=== PATIENT | female | born 1955 | race African-American/Black ===

== ENCOUNTER 2017-10-19 12:27 | Inpatient (IN) ==
[2017-10-19 12:56] LABS: ABG Base Excess 0.8 MMOL/L (-2.5-2.5); ABG Oxygen Saturation 90.3 % (95-100); ABG PCO2 48.3 MM HG (35-48); ABG PH 7.355 (7.35-7.45); ABG PO2 63.4 MM HG (80-95)
[2017-10-19] MEDS ORDERED: ALBUTEROL/IPRATROPIUM 3 ML NEB RESP TX PRN (13:02)
[2017-10-19] MEDS ORDERED: ONDANSETRON 4 MG/2 ML VIAL IV PRN (13:02)
[2017-10-19] MEDS ORDERED: ALBUTEROL 2.5 MG/3 ML NEB RESP TX PRN (13:02)
[2017-10-19] MEDS ORDERED: DEXTROSE 50% 25 GM/50 ML VIAL IV PRN (13:06)
[2017-10-19] MEDS ORDERED: GLUCAGON 1 MG VIAL IM PRN (13:06)
[2017-10-19] MEDS ORDERED: ALBUTEROL 2.5 MG/3 ML NEB RESP TX STA (13:14)
[2017-10-19] MEDS: PROPOFOL 1,000 MG/100 ML BOTTLE IV SCH ×2 (13:45→20:53)
[2017-10-19] MEDS ORDERED: PROPOFOL 1,000 MG/100 ML BOTTLE IV ONE (14:09)
[2017-10-19] MEDS ORDERED: SODIUM CHLORIDE 0.9% 1,000 ML IV ONE (14:12)
[2017-10-19] MEDS ORDERED: SODIUM CHLORIDE 0.9% 2,400 ML IV ONE (14:12)
[2017-10-19] MEDS ORDERED: SODIUM CHLORIDE 0.9% 1,000 ML IV SCH (14:30)
[2017-10-19 14:55] LABS: Basophils % 0.2 % (0.0-0.8); Hematocrit 36.4 VOL% (35.7-47.0); Immature Granulocytes % 0.8 %; Immature Granulocytes Absolute 0.05 #; Lymphocytes # 0.3 10*3/uL (1.4-4.0); Lymphocytes % 4.8 % (21.3-54.2); Mean Corpuscular Hemoglobin 28 PG (27-34); Mean Corpuscular Volume 84.8 FL (87-102); Mean Platelet Volume 9.5 FL (9.6-12.0); Monocytes # 0.3 10*3/uL (0.11-0.8); Monocytes % 4.6 % (1.7-12.7); Neutrophils # 5.6 10*3/uL (1.4-7.4); Neutrophils % 89.6 % (38.7-73.9); Platelet Count 113 T/CUMM (130-400); Red Blood Count 4.29 MC/CUMM (3.8-5.5); Red Cell Distribution Width 14.5 % (9.3-17.3); White Blood Count 6.3 T/CUMM (4-12)
[2017-10-19] MEDS ORDERED: FUROSEMIDE 40 MG/4 ML VIAL IV ONE (15:12)
[2017-10-19 15:16] LABS: Albumin 3.2 G/DL (3.4-5.0); Bilirubin,Total 1.1 MG/DL (0.2-1.0); Calcium 7.9 MG/DL (8.5-10.1); Osmolality,Calculated 274.8 MOS/KG (273-304); Potassium 2.9 MMOL/L (3.5-5.1); Total Protein 6.4 G/DL (6.4-8.3)
[2017-10-19 15:38] LABS: Lymphocytes 8 % (20-55); Polychromasia Few; Segmented Neutrophils 92 % (50-85); Total Cells Counted 100
[2017-10-19 15:39] LABS: Platelet Estimate Decreased
[2017-10-19] MEDS: methylPREDNISolone SOD SUC 40 MG/1 ML VIAL IV SCH ×2 (15:55→20:04)
[2017-10-19] MEDS: PANTOPRAZOLE 40 MG VIAL IV SCH (15:56)
[2017-10-19] MEDS ORDERED: LEVOFLOXACIN INJ 750 MG in PREMIX 1 EACH IV SCH (16:00)
[2017-10-19] MEDS: OSELTAMIVIR 6 MG/ML 60 ML/BOTTLE PO SCH ×2 (16:01→20:53)
[2017-10-19 16:46] LABS: Apearance,Urine CLEAR (Clear); Bilirubin,Urine Negative (Negative); Blood, Urine Moderate mg/dL (Negative); Glucose,Urine (UA) Negative (Negative); Ketones,Urine Negative (Negative); Mucus,Urine Few /LPF (Occasional); Nitrite,Urine Negative (Negative); Protein,Urine Negative; RBC,Urine 17 /HPF (0-4); Urine Color Yellow (Yellow); Urine Specific Gravity 1.014 (1.001-1.035); Urine Urobilinogen < 2.0 EU/DL (0.2-1.0); WBC,Urine 5 /HPF (0-6)
[2017-10-19] MEDS: INSULIN LISPRO 100 UNIT/ML SUBCUT SCH ×2 (16:58→20:16)
[2017-10-19] MEDS ORDERED: INFLUENZA VIRUS VACCINE 0.5 ML SYRINGE IM ONE (17:15)
[2017-10-19] MEDS ORDERED: PNEUMOCOCCAL VACCINE (23 VALENT) 0.5 ML VIAL IM ONE (17:17)
[2017-10-19] MEDS: PIPERACILLIN/TAZOBACTAM 3,375 MG in SODIUM CHLORIDE 0.9% 100 ML IV SCH (17:56)
[2017-10-19] MEDS ORDERED: POTASSIUM CHLORIDE INJ 50 MEQ in SODIUM CHLORIDE 0.9% 500 ML IV ONE (18:00)
[2017-10-19] MEDS ORDERED: POTASSIUM CHLORIDE RIDER 10 MEQ in PREMIX 1 EACH IV SCH (18:30)
[2017-10-19] MEDS ORDERED: ASPIRIN 325 MG TABLET PO SCH (18:35)
[2017-10-19] MEDS: ALBUTEROL/IPRATROPIUM 3 ML NEB RESP TX SCH (18:40)
[2017-10-19] MEDS ORDERED: MAGNESIUM SULF RIDER 4 GM in PREMIX 1 EACH IV PRN (18:57)
[2017-10-19] MEDS ORDERED: MAGNESIUM SULF RIDER 2 GM in PREMIX 1 EACH IV PRN (18:57)
[2017-10-19] MEDS: FUROSEMIDE 40 MG/4 ML VIAL IV SCH (19:16)
[2017-10-19] MEDS: POTASSIUM CHLORIDE 20 MEQ/15 ML UDCUP PER TUBE SCH ×3 (19:17→20:53)
[2017-10-19 19:58] LABS: CKMB % 2.2 %
[2017-10-19 20:03] LABS: Troponin I Only 2.27 NG/ML (0.00-0.045)
[2017-10-19] MEDS: ENOXAPARIN 40 MG/0.4 ML SYRINGE SUBCUT SCH (20:53)
[2017-10-19] MEDS ORDERED: DIGOXIN 0.5 MG/2 ML AMP IV ONE (22:30)
[2017-10-20] MEDS: ALBUTEROL/IPRATROPIUM 3 ML NEB RESP TX SCH ×4 (00:45→19:51)
[2017-10-20] MEDS: PIPERACILLIN/TAZOBACTAM 3,375 MG in SODIUM CHLORIDE 0.9% 100 ML IV SCH ×3 (01:27→16:48)
[2017-10-20] MEDS: methylPREDNISolone SOD SUC 40 MG/1 ML VIAL IV SCH ×4 (02:24→20:11)
[2017-10-20 04:48] LABS: ABG Base Excess 0.1 MMOL/L (-2.5-2.5); ABG HCO3 24.6 MMOL/L (20-26); ABG PCO2 35.9 MM HG (35-48); ABG PH 7.433 (7.35-7.45); ABG TCO2 21.4 MMOL/L (23-27)
[2017-10-20 04:52] LABS: Hematocrit 36.7 VOL% (35.7-47.0); Immature Granulocytes % 1.2 %; Immature Granulocytes Absolute 0.04 #; Lymphocytes # 0.4 10*3/uL (1.4-4.0); Lymphocytes % 10.5 % (21.3-54.2); Mean Corpuscular HGB Conc 32.7 GM/DL (32-36); Mean Corpuscular Hemoglobin 27 PG (27-34); Mean Corpuscular Volume 82.7 FL (87-102); Mean Platelet Volume 9.4 FL (9.6-12.0); Monocytes # 0.1 10*3/uL (0.11-0.8); Monocytes % 2.7 % (1.7-12.7); Neutrophils # 2.9 10*3/uL (1.4-7.4); Neutrophils % 85.6 % (38.7-73.9); Platelet Count 117 T/CUMM (130-400); Red Blood Count 4.44 MC/CUMM (3.8-5.5); Red Cell Distribution Width 14.6 % (9.3-17.3); White Blood Count 3.3 T/CUMM (4-12)
[2017-10-20] MEDS: PROPOFOL 1,000 MG/100 ML BOTTLE IV SCH ×4 (05:01→21:39)
[2017-10-20 06:39] LABS: Calcium 8.4 MG/DL (8.5-10.1); Osmolality,Calculated 282.7 MOS/KG (273-304); Potassium 3.8 MMOL/L (3.5-5.1); Total Protein 6.2 G/DL (6.4-8.3)
[2017-10-20] MEDS ORDERED: FUROSEMIDE 40 MG/4 ML VIAL IV SCH (08:00)
[2017-10-20] MEDS: INSULIN LISPRO 100 UNIT/ML SUBCUT SCH ×4 (08:12→21:38)
[2017-10-20] MEDS: OSELTAMIVIR 6 MG/ML 60 ML/BOTTLE PO SCH ×2 (08:17→20:11)
[2017-10-20] MEDS: FUROSEMIDE 40 MG/4 ML VIAL IV SCH ×2 (08:17→16:49)
[2017-10-20] MEDS: ASPIRIN EC 81 MG TABLET PO SCH (08:18)
[2017-10-20] MEDS ORDERED: DIGOXIN 0.5 MG/2 ML AMP ONE (12:58)
[2017-10-20] MEDS ORDERED: DIGOXIN 0.5 MG/2 ML AMP IV ONE ×2 (13:00→19:57)
[2017-10-20] MEDS ORDERED: POTASSIUM CHLORIDE RIDER 100 ML IV ONE (13:16)
[2017-10-20] MEDS: POTASSIUM CHLORIDE RIDER 10 MEQ in PREMIX 1 EACH IV PRN ×2 (13:31→14:31)
[2017-10-20] MEDS: PANTOPRAZOLE 40 MG VIAL IV SCH (14:14)
[2017-10-20] MEDS: ENOXAPARIN 40 MG/0.4 ML SYRINGE SUBCUT SCH (20:11)
[2017-10-21] MEDS: PIPERACILLIN/TAZOBACTAM 3,375 MG in SODIUM CHLORIDE 0.9% 100 ML IV SCH ×3 (01:28→17:14)
[2017-10-21] MEDS: PROPOFOL 1,000 MG/100 ML BOTTLE IV SCH ×5 (01:45→20:16)
[2017-10-21] MEDS: ALBUTEROL/IPRATROPIUM 3 ML NEB RESP TX SCH ×4 (02:04→20:46)
[2017-10-21 04:02] LABS: ABG Base Excess 3.8 MMOL/L (-2.5-2.5); ABG HCO3 26.2 MMOL/L (20-26); ABG Oxygen Saturation 99.3 % (95-100); ABG PCO2 32.6 MM HG (35-48); ABG PH 7.523 (7.35-7.45); ABG PO2 198.5 MM HG (80-95); ABG TCO2 27.2 MMOL/L (23-27); Allen Test Positive; Pt O2 Delivery Device Ventilator
[2017-10-21] MEDS: methylPREDNISolone SOD SUC 40 MG/1 ML VIAL IV SCH ×3 (06:10→17:14)
[2017-10-21] MEDS: INSULIN LISPRO 100 UNIT/ML SUBCUT SCH ×4 (07:34→22:17)
[2017-10-21] MEDS: FUROSEMIDE 40 MG/4 ML VIAL IV SCH ×2 (08:42→17:14)
[2017-10-21] MEDS: ASPIRIN EC 81 MG TABLET PO SCH (08:43)
[2017-10-21] MEDS: OSELTAMIVIR 6 MG/ML 60 ML/BOTTLE PO SCH ×2 (08:44→21:48)
[2017-10-21] MEDS: PANTOPRAZOLE 40 MG VIAL IV SCH (14:26)
[2017-10-21] MEDS: CARVEDILOL 6.25 MG TABLET PO SCH ×2 (17:14→21:48)
[2017-10-21] MEDS: APIXABAN 5 MG TABLET PO SCH (21:48)
[2017-10-22] MEDS: PIPERACILLIN/TAZOBACTAM 3,375 MG in SODIUM CHLORIDE 0.9% 100 ML IV SCH ×3 (01:05→17:21)
[2017-10-22] MEDS: methylPREDNISolone SOD SUC 40 MG/1 ML VIAL IV SCH ×4 (01:05→17:22)
[2017-10-22] MEDS: ALBUTEROL/IPRATROPIUM 3 ML NEB RESP TX SCH ×4 (01:37→21:11)
[2017-10-22 05:40] LABS: ABG Base Excess 6.5 MMOL/L (-2.5-2.5); ABG HCO3 30.4 MMOL/L (20-26); ABG Oxygen Saturation 99.3 % (95-100); ABG PCO2 40.6 MM HG (35-48); ABG PH 7.484 (7.35-7.45); ABG TCO2 26.2 MMOL/L (23-27)
[2017-10-22] MEDS: PROPOFOL 1,000 MG/100 ML BOTTLE IV SCH ×2 (07:00→16:08)
[2017-10-22] MEDS: INSULIN LISPRO 100 UNIT/ML SUBCUT SCH ×4 (07:50→22:34)
[2017-10-22] MEDS: FUROSEMIDE 40 MG/4 ML VIAL IV SCH (08:24)
[2017-10-22] MEDS: OSELTAMIVIR 6 MG/ML 60 ML/BOTTLE PO SCH (08:25)
[2017-10-22] MEDS: CARVEDILOL 6.25 MG TABLET PO SCH ×2 (08:25→20:30)
[2017-10-22] MEDS: APIXABAN 5 MG TABLET PO SCH (08:25)
[2017-10-22] MEDS: ASPIRIN EC 81 MG TABLET PO SCH (08:25)
[2017-10-22] MEDS ORDERED: POTASSIUM CHLORIDE RIDER 10 MEQ in PREMIX 1 EACH IV PRN (10:22)
[2017-10-22] MEDS ORDERED: MAGNESIUM SULF RIDER 2 GM in PREMIX 1 EACH IV PRN (10:22)
[2017-10-22] MEDS: SODIUM CHLORIDE 0.45% 1,000 ML IV SCH (10:30)
[2017-10-22] MEDS: PANTOPRAZOLE 40 MG VIAL IV SCH (13:28)
[2017-10-22 15:08] LABS: Basophils % 0.1 % (0.0-0.8); Hematocrit 43.1 VOL% (35.7-47.0); Hemoglobin 13.9 GM/DL (12.0-16.0); Immature Granulocytes % 0.5 %; Immature Granulocytes Absolute 0.04 #; Lymphocytes # 0.4 10*3/uL (1.4-4.0); Lymphocytes % 5.4 % (21.3-54.2); Mean Corpuscular HGB Conc 32.3 GM/DL (32-36); Mean Corpuscular Hemoglobin 27 PG (27-34); Mean Platelet Volume 9.4 FL (9.6-12.0); Monocytes # 0.4 10*3/uL (0.11-0.8); Monocytes % 4.5 % (1.7-12.7); Neutrophils # 6.9 10*3/uL (1.4-7.4); Neutrophils % 89.5 % (38.7-73.9); Platelet Count 143 T/CUMM (130-400); Red Blood Count 5.07 MC/CUMM (3.8-5.5); Red Cell Distribution Width 14.6 % (9.3-17.3); White Blood Count 7.7 T/CUMM (4-12)
[2017-10-22 15:14] LABS: INR 1.1; PT Patient Result 11.2 SECS
[2017-10-22 15:40] LABS: Albumin 3.1 G/DL (3.4-5.0); Bilirubin,Total 0.8 MG/DL (0.2-1.0); Calcium 8.7 MG/DL (8.5-10.1); Osmolality,Calculated 303.6 MOS/KG (273-304); Potassium 3.2 MMOL/L (3.5-5.1); Total Protein 7.2 G/DL (6.4-8.3)
[2017-10-22] MEDS ORDERED: DEXTROSE 50% 25 GM/50 ML VIAL IV PRN (19:47)
[2017-10-22] MEDS ORDERED: GLUCAGON 1 MG VIAL IM PRN (19:47)
[2017-10-22] MEDS ORDERED: ENOXAPARIN 80 MG/0.8 ML SYRINGE SUBCUT SCH (21:00)
[2017-10-22] MEDS: POTASSIUM CHLORIDE 20 MEQ TABLET PO PRN ×2 (21:51→23:45)
[2017-10-22] MEDS ORDERED: hydrALAZINE 20 MG/1 ML VIAL IV ONE (23:30)
[2017-10-23] MEDS: ALBUTEROL/IPRATROPIUM 3 ML NEB RESP TX SCH ×4 (00:39→20:15)
[2017-10-23] MEDS: methylPREDNISolone SOD SUC 40 MG/1 ML VIAL IV SCH ×5 (02:01→23:43)
[2017-10-23] MEDS: PIPERACILLIN/TAZOBACTAM 3,375 MG in SODIUM CHLORIDE 0.9% 100 ML IV SCH ×3 (02:02→17:09)
[2017-10-23] MEDS: POTASSIUM CHLORIDE 20 MEQ TABLET PO PRN ×2 (02:03→04:16)
[2017-10-23 05:36] LABS: Hematocrit 40.6 VOL% (35.7-47.0); Hemoglobin 13.1 GM/DL (12.0-16.0); Immature Granulocytes % 0.8 %; Immature Granulocytes Absolute 0.06 #; Lymphocytes # 0.5 10*3/uL (1.4-4.0); Lymphocytes % 6.7 % (21.3-54.2); Mean Corpuscular HGB Conc 32.3 GM/DL (32-36); Mean Corpuscular Hemoglobin 27 PG (27-34); Mean Corpuscular Volume 84.8 FL (87-102); Mean Platelet Volume 10.1 FL (9.6-12.0); Monocytes # 0.3 10*3/uL (0.11-0.8); Monocytes % 4.3 % (1.7-12.7); Neutrophils # 6.4 10*3/uL (1.4-7.4); Neutrophils % 88.2 % (38.7-73.9); Platelet Count 144 T/CUMM (130-400); Red Blood Count 4.79 MC/CUMM (3.8-5.5); Red Cell Distribution Width 14.2 % (9.3-17.3); White Blood Count 7.2 T/CUMM (4-12)
[2017-10-23 05:55] LABS: Calcium 8.4 MG/DL (8.5-10.1); Osmolality,Calculated 289.4 MOS/KG (273-304); Potassium 3.7 MMOL/L (3.5-5.1)
[2017-10-23] MEDS ORDERED: LIDOCAINE 1% 20 ML VIAL ONE ×2 (06:51→07:32)
[2017-10-23] MEDS ORDERED: HEPARIN/NACL 0.9% 2 UNITS/ML 0 ML IV ONE (06:51)
[2017-10-23] MEDS ORDERED: diphenhydrAMINE 50 MG/1 ML VIAL IV ONE (06:59)
[2017-10-23] MEDS ORDERED: DIAZEPAM 5 MG TABLET PO ONE (07:00)
[2017-10-23] MEDS ORDERED: MIDAZOLAM 2 MG/2 ML VIAL ONE (07:36)
[2017-10-23] MEDS ORDERED: HYDROmorphone 2 MG/1 ML VIAL ONE (07:36)
[2017-10-23] MEDS: INSULIN LISPRO 100 UNIT/ML SUBCUT SCH ×4 (07:38→20:25)
[2017-10-23] MEDS ORDERED: ENOXAPARIN 60 MG/0.6 ML SYRINGE ONE (08:04)
[2017-10-23] MEDS ORDERED: NITROGLYCERIN SL 0.4 MG TABLET SL PRN (09:13)
[2017-10-23] MEDS ORDERED: CLOPIDOGREL 300 MG TABLET ONE (09:15)
[2017-10-23] MEDS: SODIUM CHLORIDE 0.45% 1,000 ML IV SCH (09:30)
[2017-10-23] MEDS: ASPIRIN EC 81 MG TABLET PO SCH (11:27)
[2017-10-23] MEDS: ATORVASTATIN 80 MG TABLET PO SCH (11:27)
[2017-10-23] MEDS: CARVEDILOL 6.25 MG TABLET PO SCH ×2 (11:27→20:07)
[2017-10-23] MEDS: OSELTAMIVIR 6 MG/ML 60 ML/BOTTLE PO SCH ×2 (11:28→20:07)
[2017-10-23] MEDS: PANTOPRAZOLE 40 MG VIAL IV SCH (14:02)
[2017-10-23] MEDS: hydrALAZINE 20 MG/1 ML VIAL IV PRN (15:19)
[2017-10-24] MEDS: ALBUTEROL/IPRATROPIUM 3 ML NEB RESP TX SCH ×4 (00:39→19:13)
[2017-10-24] MEDS: PIPERACILLIN/TAZOBACTAM 3,375 MG in SODIUM CHLORIDE 0.9% 100 ML IV SCH ×3 (00:45→17:07)
[2017-10-24] MEDS: hydrALAZINE 20 MG/1 ML VIAL IV PRN (03:48)
[2017-10-24] MEDS: methylPREDNISolone SOD SUC 40 MG/1 ML VIAL IV SCH ×3 (05:18→20:59)
[2017-10-24 06:47] LABS: Hematocrit 40.6 VOL% (35.7-47.0); Hemoglobin 13.6 GM/DL (12.0-16.0); Immature Granulocytes % 0.7 %; Immature Granulocytes Absolute 0.04 #; Lymphocytes # 0.5 10*3/uL (1.4-4.0); Mean Corpuscular HGB Conc 33.5 GM/DL (32-36); Mean Corpuscular Hemoglobin 27 PG (27-34); Mean Corpuscular Volume 81.7 FL (87-102); Mean Platelet Volume 9.7 FL (9.6-12.0); Monocytes # 0.2 10*3/uL (0.11-0.8); Monocytes % 3.4 % (1.7-12.7); Neutrophils % 86.9 % (38.7-73.9); Platelet Count 150 T/CUMM (130-400); Red Blood Count 4.97 MC/CUMM (3.8-5.5); Red Cell Distribution Width 13.9 % (9.3-17.3); White Blood Count 5.8 T/CUMM (4-12)
[2017-10-24 07:11] LABS: Calcium 8.4 MG/DL (8.5-10.1); Magnesium 2.7 MG/DL (1.8-2.4); Osmolality,Calculated 289.4 MOS/KG (273-304); Potassium 3.8 MMOL/L (3.5-5.1)
[2017-10-24] MEDS: INSULIN LISPRO 100 UNIT/ML SUBCUT SCH ×4 (07:29→20:55)
[2017-10-24] MEDS: ATORVASTATIN 80 MG TABLET PO SCH (08:26)
[2017-10-24] MEDS: CLOPIDOGREL 75 MG TABLET PO SCH (08:26)
[2017-10-24] MEDS: ASPIRIN EC 81 MG TABLET PO SCH (08:26)
[2017-10-24] MEDS: CARVEDILOL 6.25 MG TABLET PO SCH ×2 (08:27→20:54)
[2017-10-24] MEDS: SODIUM CHLORIDE 0.45% 1,000 ML IV SCH (08:44)
[2017-10-24] MEDS: APIXABAN 5 MG TABLET PO SCH ×2 (12:07→20:54)
[2017-10-24] MEDS: OSELTAMIVIR 6 MG/ML 60 ML/BOTTLE PO SCH ×2 (15:40→20:53)
[2017-10-24] MEDS: PANTOPRAZOLE 40 MG VIAL IV SCH (17:02)
[2017-10-25] MEDS: methylPREDNISolone SOD SUC 40 MG/1 ML VIAL IV SCH ×2 (00:17→05:34)
[2017-10-25] MEDS: ALBUTEROL/IPRATROPIUM 3 ML NEB RESP TX SCH ×4 (01:25→19:26)
[2017-10-25] MEDS: PIPERACILLIN/TAZOBACTAM 3,375 MG in SODIUM CHLORIDE 0.9% 100 ML IV SCH ×2 (01:30→09:21)
[2017-10-25 04:00] LABS: Basophils % 0.1 % (0.0-0.8); Hematocrit 38.5 VOL% (35.7-47.0); Hemoglobin 13.1 GM/DL (12.0-16.0); Immature Granulocytes % 0.7 %; Immature Granulocytes Absolute 0.05 #; Lymphocytes # 0.6 10*3/uL (1.4-4.0); Lymphocytes % 7.9 % (21.3-54.2); Mean Corpuscular Hemoglobin 28 PG (27-34); Mean Corpuscular Volume 81.4 FL (87-102); Mean Platelet Volume 9.9 FL (9.6-12.0); Monocytes # 0.4 10*3/uL (0.11-0.8); Monocytes % 4.8 % (1.7-12.7); Neutrophils # 6.4 10*3/uL (1.4-7.4); Neutrophils % 86.5 % (38.7-73.9); Platelet Count 147 T/CUMM (130-400); Red Blood Count 4.73 MC/CUMM (3.8-5.5); Red Cell Distribution Width 13.6 % (9.3-17.3); White Blood Count 7.4 T/CUMM (4-12)
[2017-10-25 04:36] LABS: Calcium 8.3 MG/DL (8.5-10.1); Magnesium 2.6 MG/DL (1.8-2.4); Osmolality,Calculated 288.4 MOS/KG (273-304); Potassium 3.9 MMOL/L (3.5-5.1)
[2017-10-25] MEDS: APIXABAN 5 MG TABLET PO SCH ×2 (09:20→20:53)
[2017-10-25] MEDS: CLOPIDOGREL 75 MG TABLET PO SCH (09:20)
[2017-10-25] MEDS: ATORVASTATIN 80 MG TABLET PO SCH (09:20)
[2017-10-25] MEDS: CARVEDILOL 6.25 MG TABLET PO SCH ×2 (09:20→20:52)
[2017-10-25] MEDS: INSULIN LISPRO 100 UNIT/ML SUBCUT SCH ×4 (09:22→20:53)
[2017-10-25] MEDS: OSELTAMIVIR 6 MG/ML 60 ML/BOTTLE PO SCH ×2 (10:34→20:49)
[2017-10-25] MEDS: PANTOPRAZOLE 40 MG VIAL IV SCH (13:39)
[2017-10-25] MEDS: FUROSEMIDE 40 MG TABLET PO SCH (16:29)
[2017-10-25] MEDS: AMOXICILLIN/CLAV 500 MG TABLET PO SCH (20:52)
[2017-10-26] MEDS: ALBUTEROL/IPRATROPIUM 3 ML NEB RESP TX SCH ×3 (00:28→14:08)
[2017-10-26] MEDS: ATORVASTATIN 80 MG TABLET PO SCH (09:45)
[2017-10-26] MEDS: AMOXICILLIN/CLAV 500 MG TABLET PO SCH (09:45)
[2017-10-26] MEDS: FUROSEMIDE 40 MG TABLET PO SCH (09:45)
[2017-10-26] MEDS: CLOPIDOGREL 75 MG TABLET PO SCH (09:45)
[2017-10-26] MEDS: CARVEDILOL 6.25 MG TABLET PO SCH (09:46)
[2017-10-26] MEDS: INSULIN LISPRO 100 UNIT/ML SUBCUT SCH ×2 (09:46→12:28)
[2017-10-26] MEDS: APIXABAN 5 MG TABLET PO SCH (09:46)
[2017-10-26] MEDS: OSELTAMIVIR 6 MG/ML 60 ML/BOTTLE PO SCH (10:41)
[2017-10-26] MEDS ORDERED: CARVEDILOL 12.5 MG TABLET PO SCH (10:55)
[2017-10-26] MEDS ORDERED: ASPIRIN CHEW 81 MG TABLET PO SCH (11:00)
[2017-10-26 12:12] VITALS: BP 148/88
[2017-10-26] MEDS: PANTOPRAZOLE 40 MG VIAL IV SCH (12:43)
[2017-10-26] MEDS: POTASSIUM CHLORIDE 20 MEQ TABLET PO PRN (13:31)
[2017-10-26] MEDS ORDERED: POTASSIUM CHLORIDE 20 MEQ TABLET PO ONE (14:22)
[2017-10-27] MEDS ORDERED: LOSARTAN 50 MG TABLET PO SCH (09:00)
== END 2017-10-26 14:30 | disposition home or self-care (01) | DRG 981 ==
LOC: EDUNIT# → N.ED 12:27 → N.EDINP 13:01 → SUATTDRO 13:01 → N.CC 13:34 → N.TELES 10-24 09:33
PROVIDERS: ADMIT Internal Medicine; ATTEND Internal Medicine

== ENCOUNTER 2017-11-24 17:24 | Inpatient (IN) ==
[2017-11-24] MEDS ORDERED: PANTOPRAZOLE 40 MG VIAL IV STA (18:07)
[2017-11-24] MEDS ORDERED: SODIUM CHLORIDE 0.9% 1,000 ML IV STA (18:07)
[2017-11-24] MEDS ORDERED: ONDANSETRON 4 MG/2 ML VIAL IV STA (18:07)
[2017-11-24 18:51] LABS: Basophils % 0.1 % (0.0-0.8); Eosinophils % 0.1 % (0.00-10.9); Hematocrit 20.1 VOL% (35.7-47.0); Immature Granulocytes % 0.4 %; Immature Granulocytes Absolute 0.03 #; Lymphocytes # 1.2 10*3/uL (1.4-4.0); Lymphocytes % 18.5 % (21.3-54.2); Mean Corpuscular HGB Conc 31.8 GM/DL (32-36); Mean Corpuscular Hemoglobin 26 PG (27-34); Mean Corpuscular Volume 82.4 FL (87-102); Mean Platelet Volume 8.8 FL (9.6-12.0); Monocytes # 0.6 10*3/uL (0.11-0.8); Monocytes % 9.4 % (1.7-12.7); NRBC # 0.02 10*3/uL; Neutrophils # 4.8 10*3/uL (1.4-7.4); Neutrophils % 71.5 % (38.7-73.9); Platelet Count 245 T/CUMM (130-400); Red Blood Count 2.44 MC/CUMM (3.8-5.5); Red Cell Distribution Width 16.2 % (9.3-17.3); White Blood Count 6.7 T/CUMM (4-12)
[2017-11-24 18:59] LABS: Hemoglobin 6.4 GM/DL (12.0-16.0)
[2017-11-24 19:01] LABS: INR 1.4; PT Patient Result 14.8 SECS; Partial Thromboplastin Time 30.9 SECS (0-40)
[2017-11-24 19:09] LABS: Alanine Aminotransferase 40 U/L (13-56); Albumin 2.6 G/DL (3.4-5.0); Alkaline Phosphatase 52 U/L (45-117); Aspartate Amino Transferase 44 U/L (0-37); Blood Urea Nitrogen 33 MG/DL (7-18); Calcium 7.9 MG/DL (8.5-10.1); Glucose 102 MG/DL (74-106); Osmolality,Calculated 285.4 MOS/KG (273-304); Potassium 3.3 MMOL/L (3.5-5.1); Sodium 140 MMOL/L (136-145); Total Protein 5.4 G/DL (6.4-8.3)
[2017-11-24] MEDS ORDERED: ONDANSETRON 4 MG/2 ML VIAL ONE (19:11)
[2017-11-24] MEDS ORDERED: PANTOPRAZOLE 40 MG VIAL IV ONE (19:11)
[2017-11-24] MEDS ORDERED: FUROSEMIDE 40 MG/4 ML VIAL IV PRN (20:02)
[2017-11-24] MEDS ORDERED: SODIUM CHLORIDE 0.9% 1,000 ML IV PRN (20:02)
[2017-11-24] MEDS ORDERED: PHYTONADIONE 5 MG/5 ML ORAL.SYR PO ONE (20:09)
[2017-11-24] MEDS ORDERED: FUROSEMIDE 40 MG/4 ML VIAL IV ONE (21:00)
[2017-11-24] MEDS ORDERED: PROMETHAZINE 25 MG/1 ML VIAL IM PRN (21:30)
[2017-11-24] MEDS ORDERED: PROMETHAZINE 25 MG TABLET PO PRN (21:30)
[2017-11-24] MEDS ORDERED: ONDANSETRON 4 MG/2 ML VIAL IV PRN (21:30)
[2017-11-24] MEDS ORDERED: GLUCAGON 1 MG VIAL IM PRN (21:30)
[2017-11-24] MEDS ORDERED: DEXTROSE 50% 25 GM/50 ML VIAL IV PRN (21:30)
[2017-11-25] MEDS: POTASSIUM CHLORIDE 20 MEQ TABLET PO SCH ×2 (00:42→09:01)
[2017-11-25] MEDS: ACETAMINOPHEN 325 MG TABLET PO PRN ×2 (00:42→09:00)
[2017-11-25] MEDS: INSULIN LISPRO 100 UNIT/ML SUBCUT SCH ×5 (00:48→20:34)
[2017-11-25] MEDS ORDERED: FUROSEMIDE 40 MG/4 ML VIAL IV ONE (01:00)
[2017-11-25 05:17] LABS: Basophils % 0.3 % (0.0-0.8); Eosinophils % 0.1 % (0.00-10.9); Hematocrit 23.1 VOL% (35.7-47.0); Hemoglobin 7.7 GM/DL (12.0-16.0); Immature Granulocytes % 0.4 %; Immature Granulocytes Absolute 0.03 #; Lymphocytes # 1.2 10*3/uL (1.4-4.0); Lymphocytes % 17.3 % (21.3-54.2); Mean Corpuscular HGB Conc 33.3 GM/DL (32-36); Mean Corpuscular Hemoglobin 28 PG (27-34); Mean Corpuscular Volume 82.8 FL (87-102); Mean Platelet Volume 8.9 FL (9.6-12.0); Monocytes # 0.6 10*3/uL (0.11-0.8); Monocytes % 9.5 % (1.7-12.7); NRBC # 0.02 10*3/uL; Neutrophils # 4.9 10*3/uL (1.4-7.4); Neutrophils % 72.4 % (38.7-73.9); Platelet Count 209 T/CUMM (130-400); Red Blood Count 2.79 MC/CUMM (3.8-5.5); Red Cell Distribution Width 15.9 % (9.3-17.3); White Blood Count 6.7 T/CUMM (4-12)
[2017-11-25 06:00] LABS: Alanine Aminotransferase 35 U/L (13-56); Albumin 2.5 G/DL (3.4-5.0); Alkaline Phosphatase 48 U/L (45-117); Aspartate Amino Transferase 39 U/L (0-37); Blood Urea Nitrogen 30 MG/DL (7-18); Calcium 7.9 MG/DL (8.5-10.1); Glucose 122 MG/DL (74-106); Osmolality,Calculated 283.5 MOS/KG (273-304); Potassium 3.4 MMOL/L (3.5-5.1); Sodium 139 MMOL/L (136-145)
[2017-11-25 06:02] LABS: Troponin I Only 0.157 NG/ML (0.00-0.045)
[2017-11-25] MEDS ORDERED: ATORVASTATIN 80 MG TABLET PO SCH (09:00)
[2017-11-25] MEDS: PANTOPRAZOLE 40 MG TABLET PO SCH (09:01)
[2017-11-25 09:28] LABS: Basophils % 0.4 % (0.0-0.8); Eosinophils % 0.1 % (0.00-10.9); Hematocrit 26.8 VOL% (35.7-47.0); Hemoglobin 8.6 GM/DL (12.0-16.0); Immature Granulocytes % 0.4 %; Immature Granulocytes Absolute 0.03 #; Lymphocytes # 1.4 10*3/uL (1.4-4.0); Lymphocytes % 15.8 % (21.3-54.2); Mean Corpuscular HGB Conc 32.1 GM/DL (32-36); Mean Corpuscular Hemoglobin 27 PG (27-34); Mean Corpuscular Volume 84.8 FL (87-102); Mean Platelet Volume 8.6 FL (9.6-12.0); Monocytes # 0.8 10*3/uL (0.11-0.8); Monocytes % 9.5 % (1.7-12.7); NRBC # 0.03 10*3/uL; Neutrophils # 6.3 10*3/uL (1.4-7.4); Neutrophils % 73.8 % (38.7-73.9); Platelet Count 200 T/CUMM (130-400); Red Blood Count 3.16 MC/CUMM (3.8-5.5); Red Cell Distribution Width 15.4 % (9.3-17.3); White Blood Count 8.5 T/CUMM (4-12)
[2017-11-25 10:07] LABS: Troponin I Only 0.419 NG/ML (0.00-0.045)
[2017-11-25] MEDS ORDERED: DIGOXIN 0.5 MG/2 ML AMP IV ONE (11:58)
[2017-11-25] MEDS ORDERED: SODIUM CHLORIDE 0.45% 1,000 ML IV SCH (12:00)
[2017-11-25] MEDS: ATORVASTATIN 80 MG TABLET PO SCH (20:34)
[2017-11-26 06:12] LABS: Basophils % 0.1 % (0.0-0.8); Eosinophils % 0.1 % (0.00-10.9); Hematocrit 24.4 VOL% (35.7-47.0); Hemoglobin 8.1 GM/DL (12.0-16.0); Immature Granulocytes % 0.4 %; Immature Granulocytes Absolute 0.03 #; Lymphocytes # 1.1 10*3/uL (1.4-4.0); Lymphocytes % 14.6 % (21.3-54.2); Mean Corpuscular HGB Conc 33.2 GM/DL (32-36); Mean Corpuscular Hemoglobin 28 PG (27-34); Mean Corpuscular Volume 83.6 FL (87-102); Mean Platelet Volume 8.8 FL (9.6-12.0); Monocytes # 0.5 10*3/uL (0.11-0.8); Monocytes % 7.2 % (1.7-12.7); Neutrophils # 5.9 10*3/uL (1.4-7.4); Neutrophils % 77.6 % (38.7-73.9); Platelet Count 196 T/CUMM (130-400); Red Blood Count 2.92 MC/CUMM (3.8-5.5); Red Cell Distribution Width 15.9 % (9.3-17.3); White Blood Count 7.5 T/CUMM (4-12)
[2017-11-26 06:15] LABS: Calcium 8.1 MG/DL (8.5-10.1); Osmolality,Calculated 279.7 MOS/KG (273-304); Potassium 3.6 MMOL/L (3.5-5.1)
[2017-11-26 06:19] LABS: % Iron Saturation 6.7 % (18-50)
[2017-11-26 06:26] LABS: Folate 6.4 NG/ML (5.4-24.0); Vitamin B12 866 PG/ML (211-911)
[2017-11-26 07:51] LABS: Sedimentation Rate-Westergren 14 MM/HR (0-30)
[2017-11-26 08:08] LABS: Hemoglobin A1 (Alkaline) 97.3 % (96.5-98.5); Hemoglobin A2 (Alkaline) 2.7 % (1.5-3.5)
[2017-11-26] MEDS: INSULIN LISPRO 100 UNIT/ML SUBCUT SCH ×4 (08:08→20:50)
[2017-11-26] MEDS: PANTOPRAZOLE 40 MG TABLET PO SCH (12:50)
[2017-11-26] MEDS: POTASSIUM CHLORIDE 20 MEQ TABLET PO SCH (12:50)
[2017-11-26] MEDS ORDERED: DIGOXIN 0.5 MG/2 ML AMP IV ONE (14:28)
[2017-11-26] MEDS ORDERED: SODIUM CHLORIDE 0.45% 1,000 ML IV SCH (14:30)
[2017-11-26] MEDS: ATORVASTATIN 80 MG TABLET PO SCH (20:50)
[2017-11-26] MEDS: FERROUS SULFATE 325 MG TABLET PO SCH (20:50)
[2017-11-27 05:22] LABS: Basophils % 0.1 % (0.0-0.8); Eosinophils % 0.3 % (0.00-10.9); Hemoglobin 7.7 GM/DL (12.0-16.0); Immature Granulocytes % 0.6 %; Immature Granulocytes Absolute 0.05 #; Lymphocytes # 1.3 10*3/uL (1.4-4.0); Lymphocytes % 16.3 % (21.3-54.2); Mean Corpuscular HGB Conc 32.1 GM/DL (32-36); Mean Corpuscular Hemoglobin 27 PG (27-34); Mean Corpuscular Volume 84.8 FL (87-102); Mean Platelet Volume 8.3 FL (9.6-12.0); Monocytes # 0.8 10*3/uL (0.11-0.8); Monocytes % 9.9 % (1.7-12.7); NRBC # 0.03 10*3/uL; Neutrophils # 5.7 10*3/uL (1.4-7.4); Neutrophils % 72.8 % (38.7-73.9); Platelet Count 175 T/CUMM (130-400); Red Blood Count 2.83 MC/CUMM (3.8-5.5); Red Cell Distribution Width 15.8 % (9.3-17.3); White Blood Count 7.8 T/CUMM (4-12)
[2017-11-27 05:54] LABS: Calcium 7.7 MG/DL (8.5-10.1); Potassium 3.2 MMOL/L (3.5-5.1)
[2017-11-27] MEDS: INSULIN LISPRO 100 UNIT/ML SUBCUT SCH ×4 (08:14→21:13)
[2017-11-27] MEDS: PANTOPRAZOLE 40 MG TABLET PO SCH (10:23)
[2017-11-27] MEDS: FERROUS SULFATE 325 MG TABLET PO SCH ×2 (10:23→21:10)
[2017-11-27] MEDS: POTASSIUM CHLORIDE 20 MEQ TABLET PO SCH (10:23)
[2017-11-27] MEDS ORDERED: SODIUM CHLORIDE 0.9% 1,000 ML IV PRN ×2 (10:44→10:59)
[2017-11-27] MEDS ORDERED: POTASSIUM CHLORIDE 20 MEQ TABLET PO SCH (11:00)
[2017-11-27] MEDS ORDERED: LIDOCAINE 100 MG/5 ML SYRINGE ONE (11:11)
[2017-11-27] MEDS ORDERED: ETOMIDATE 20 MG/10 ML VIAL IV ONE (11:11)
[2017-11-27] MEDS: POLYETHYLENE GLYCOL POWDER 17 GM PACK PO SCH (12:35)
[2017-11-27] MEDS: POTASSIUM CHLORIDE 20 MEQ TABLET PO PRN ×4 (12:37→21:11)
[2017-11-27] MEDS: ATORVASTATIN 80 MG TABLET PO SCH (21:10)
[2017-11-28 07:32] LABS: Basophils % 0.1 % (0.0-0.8); Eosinophils % 0.3 % (0.00-10.9); Hematocrit 31.8 VOL% (35.7-47.0); Immature Granulocytes % 0.4 %; Immature Granulocytes Absolute 0.04 #; Lymphocytes # 1.5 10*3/uL (1.4-4.0); Lymphocytes % 16.6 % (21.3-54.2); Mean Corpuscular HGB Conc 32.7 GM/DL (32-36); Mean Corpuscular Hemoglobin 28 PG (27-34); Mean Corpuscular Volume 84.6 FL (87-102); Mean Platelet Volume 8.9 FL (9.6-12.0); Monocytes # 0.8 10*3/uL (0.11-0.8); Monocytes % 9.1 % (1.7-12.7); NRBC # 0.02 10*3/uL; Neutrophils # 6.6 10*3/uL (1.4-7.4); Neutrophils % 73.5 % (38.7-73.9); Platelet Count 172 T/CUMM (130-400); White Blood Count 8.9 T/CUMM (4-12)
[2017-11-28 07:35] LABS: Hemoglobin 10.4 GM/DL (12.0-16.0); Red Blood Count 3.76 MC/CUMM (3.8-5.5)
[2017-11-28 07:42] LABS: Calcium 8.1 MG/DL (8.5-10.1); Osmolality,Calculated 274.8 MOS/KG (273-304); Potassium 4.5 MMOL/L (3.5-5.1)
[2017-11-28] MEDS: INSULIN LISPRO 100 UNIT/ML SUBCUT SCH ×4 (08:49→20:54)
[2017-11-28] MEDS: PANTOPRAZOLE 40 MG TABLET PO SCH (09:26)
[2017-11-28] MEDS: FERROUS SULFATE 325 MG TABLET PO SCH ×2 (09:26→20:39)
[2017-11-28] MEDS ORDERED: FUROSEMIDE 40 MG/4 ML VIAL IV ONE (10:01)
[2017-11-28] MEDS: CARVEDILOL 3.125 MG TABLET PO SCH ×2 (10:28→20:42)
[2017-11-28] MEDS: POLYETHYLENE GLYCOL POWDER 17 GM PACK PO SCH (10:37)
[2017-11-28] MEDS ORDERED: ALBUTEROL/IPRATROPIUM 3 ML NEB RESP TX PRN (11:44)
[2017-11-28] MEDS: ALBUTEROL/IPRATROPIUM 3 ML NEB RESP TX SCH ×3 (13:15→23:59)
[2017-11-28] MEDS: MONTELUKAST 10 MG TABLET PO SCH (16:20)
[2017-11-28] MEDS: ATORVASTATIN 80 MG TABLET PO SCH (20:39)
[2017-11-29 06:02] LABS: Basophils % 0.1 % (0.0-0.8); Eosinophils # 0.1 10*3/uL (0.0-0.87); Eosinophils % 0.8 % (0.00-10.9); Hematocrit 30.7 VOL% (35.7-47.0); Hemoglobin 9.8 GM/DL (12.0-16.0); Immature Granulocytes % 0.4 %; Immature Granulocytes Absolute 0.03 #; Lymphocytes # 1.2 10*3/uL (1.4-4.0); Lymphocytes % 16.7 % (21.3-54.2); Mean Corpuscular HGB Conc 31.9 GM/DL (32-36); Mean Corpuscular Hemoglobin 27 PG (27-34); Mean Corpuscular Volume 85.5 FL (87-102); Mean Platelet Volume 9.1 FL (9.6-12.0); Monocytes # 0.5 10*3/uL (0.11-0.8); Monocytes % 7.3 % (1.7-12.7); Neutrophils # 5.5 10*3/uL (1.4-7.4); Neutrophils % 74.7 % (38.7-73.9); Platelet Count 168 T/CUMM (130-400); Red Blood Count 3.59 MC/CUMM (3.8-5.5); Red Cell Distribution Width 16.4 % (9.3-17.3); White Blood Count 7.4 T/CUMM (4-12)
[2017-11-29 06:22] LABS: Albumin 2.4 G/DL (3.4-5.0); Bilirubin,Total 1.7 MG/DL (0.2-1.0); Calcium 8.1 MG/DL (8.5-10.1); Osmolality,Calculated 274.7 MOS/KG (273-304); Potassium 4.1 MMOL/L (3.5-5.1); Total Protein 5.1 G/DL (6.4-8.3)
[2017-11-29] MEDS: ALBUTEROL/IPRATROPIUM 3 ML NEB RESP TX SCH ×3 (07:11→19:32)
[2017-11-29] MEDS: INSULIN LISPRO 100 UNIT/ML SUBCUT SCH ×4 (08:25→21:01)
[2017-11-29] MEDS: PANTOPRAZOLE 40 MG TABLET PO SCH (08:59)
[2017-11-29] MEDS: CARVEDILOL 3.125 MG TABLET PO SCH ×2 (08:59→20:58)
[2017-11-29] MEDS: MONTELUKAST 10 MG TABLET PO SCH (08:59)
[2017-11-29] MEDS: POLYETHYLENE GLYCOL POWDER 17 GM PACK PO SCH (08:59)
[2017-11-29] MEDS: FERROUS SULFATE 325 MG TABLET PO SCH ×2 (09:03→20:58)
[2017-11-29] MEDS ORDERED: amLODIPine 5 MG TABLET PO SCH (10:00)
[2017-11-29] MEDS ORDERED: DIGOXIN 0.5 MG/2 ML AMP IV ONE (11:57)
[2017-11-29] MEDS ORDERED: CARVEDILOL 3.125 MG TABLET PO ONE (12:00)
[2017-11-29] MEDS: FUROSEMIDE 40 MG/4 ML VIAL IV SCH (15:40)
[2017-11-29] MEDS: ATORVASTATIN 80 MG TABLET PO SCH (20:58)
[2017-11-30] MEDS: ALBUTEROL/IPRATROPIUM 3 ML NEB RESP TX SCH ×3 (00:03→13:15)
[2017-11-30 05:21] LABS: Basophils % 0.3 % (0.0-0.8); Eosinophils # 0.1 10*3/uL (0.0-0.87); Eosinophils % 0.9 % (0.00-10.9); Hematocrit 30.7 VOL% (35.7-47.0); Immature Granulocytes % 0.6 %; Immature Granulocytes Absolute 0.04 #; Lymphocytes # 1.2 10*3/uL (1.4-4.0); Lymphocytes % 16.7 % (21.3-54.2); Mean Corpuscular HGB Conc 32.6 GM/DL (32-36); Mean Corpuscular Hemoglobin 29 PG (27-34); Mean Corpuscular Volume 87.7 FL (87-102); Mean Platelet Volume 8.6 FL (9.6-12.0); Monocytes # 0.5 10*3/uL (0.11-0.8); Monocytes % 7.6 % (1.7-12.7); Neutrophils # 5.2 10*3/uL (1.4-7.4); Neutrophils % 73.9 % (38.7-73.9); Platelet Count 176 T/CUMM (130-400); Red Cell Distribution Width 16.6 % (9.3-17.3)
[2017-11-30 05:56] LABS: Calcium 8.3 MG/DL (8.5-10.1); Osmolality,Calculated 275.5 MOS/KG (273-304); Potassium 4.3 MMOL/L (3.5-5.1)
[2017-11-30] MEDS: POLYETHYLENE GLYCOL POWDER 17 GM PACK PO SCH (08:58)
[2017-11-30] MEDS: CARVEDILOL 3.125 MG TABLET PO SCH (08:59)
[2017-11-30] MEDS: MONTELUKAST 10 MG TABLET PO SCH (08:59)
[2017-11-30] MEDS: PANTOPRAZOLE 40 MG TABLET PO SCH (08:59)
[2017-11-30] MEDS: FERROUS SULFATE 325 MG TABLET PO SCH (08:59)
[2017-11-30] MEDS ORDERED: DIGOXIN 0.5 MG/2 ML AMP IV SCH (09:00)
[2017-11-30] MEDS ORDERED: LISINOPRIL 5 MG TABLET PO SCH (09:00)
[2017-11-30] MEDS: INSULIN LISPRO 100 UNIT/ML SUBCUT SCH ×3 (09:06→15:41)
[2017-11-30] MEDS: FUROSEMIDE 40 MG/4 ML VIAL IV SCH ×2 (10:38→16:58)
[2017-11-30 15:52] VITALS: BP 101/55
== END 2017-11-30 17:56 | disposition home or self-care (01) | DRG 377 ==
LOC: N.ED 17:24 → N.EDINP 20:00 → SUATTDRO 20:00 → N.4E 20:51
PROVIDERS: ADMIT Family Medicine; ATTEND Hospitalist